=== PATIENT | female | born 1950 | race Asian ===

== ENCOUNTER 2018-01-08 18:36 | Emergency (ER) | payer SELFPAY ==
[~2018-01-08] VITALS: Ht 152.4 cm; Wt 62.7 kg
[2018-01-08] MEDS ORDERED: SODIUM CHLORIDE 0.9% 1,000 ML IV ONE (19:15)
[2018-01-08 20:58] VITALS: BP 137/82
== END 2018-01-08 21:42 | disposition home or self-care (01) ==
LOC: EMS 18:37
DX: F43.0 Acute stress reaction (principal)
CPT/HCPCS: 96360; 99284; J7030